=== PATIENT | male | born 1990 | race Hispanic/Latino ===

== ENCOUNTER 2017-01-27 12:43 | Emergency (ER) | payer SELFPAY ==
[2017-01-27] MEDS ORDERED: Proparacaine 0.5% Opth 15 ML BOT ONE (12:50)
[2017-01-27] MEDS ORDERED: Fluorescein Opthalmic Strip ONE (12:50)
== END 2017-01-27 13:21 | disposition home or self-care (01) ==
LOC: SCSER 12:43
DX: H10.9 Unspecified conjunctivitis (principal); F17.210 Nicotine dependence, cigarettes, uncomplicated; Z79.899 Other long term (current) drug therapy
CPT/HCPCS: 99406